=== PATIENT | female | born 1940 | race Caucasian/White ===

== ENCOUNTER 2025-05-07 15:13 | Inpatient (IN) | payer MEDICARE, OTHER ==
[~2025-05-07] VITALS: Ht 170.2 cm; Wt 67.2 kg
[2025-05-07 16:15] LABS: PLATELET COUNT (AUTO) 193 K/uL (150-450); RED BLOOD CELL COUNT(AUTO) 3.60 MIL/uL (4.0-5.2); RED CELL DISTRIBUTION WIDTH 21.8 % (11.5-15.0); WHITE BLOOD COUNT (AUTO) 8.6 K/uL (4.3-11.0)
[2025-05-07 16:22] LABS: CALCIUM, SERUM 8.0 mg/dL (8.5-10.1); CREATININE 0.3 mg/dL (0.6-1.3); SODIUM SERUM 133 mmol/L (136-145); UREA NITROGEN, BLOOD 15 mg/dL (7-18)
[2025-05-07] MEDS ORDERED: IOHEXOL-350 100 ML VIAL IV ONE ×2 (16:34→17:32)
[2025-05-07 16:35] LABS: ASPARTATE AMINOTRANSFERASE 22 U/L (15-37); NT-PRO BNP 240 pg/mL (0-125); TOTAL PROTEIN, SERUM 6.2 g/dL (6.4-8.2)
[2025-05-07 16:42] LABS: INR 0.99 (0.91-1.10)
[2025-05-07] MEDS ORDERED: DEXA4TAB68 PO (19:32)
[2025-05-07] MEDS ORDERED: FLEC50TA2 PO (19:32)
[2025-05-07] MEDS ORDERED: ESTR0.3T3 PO (19:32)
[2025-05-07] MEDS ORDERED: METH-647 PO (19:32)
[2025-05-07] MEDS ORDERED: GABA-536 PO (19:32)
[2025-05-07] MEDS ORDERED: HYDR-3972 PO (19:32)
[2025-05-07] MEDS ORDERED: ALPR0.5T8 PO (19:32)
[2025-05-07] MEDS ORDERED: METO25TA20 PO (19:32)
[2025-05-07] MEDS ORDERED: ESZO3TAB27 PO (19:32)
[2025-05-07] MEDS ORDERED: ATOR40TA PO (19:32)
[2025-05-07] MEDS ORDERED: TRAZ-182 PO (19:32)
[2025-05-07] MEDS ORDERED: MAGNESIUM HYDROXIDE 30 ML UDC PO PRN (21:00)
[2025-05-07] MEDS ORDERED: Z GUARD REMEDY 4 OZ OINT TP PRN (21:00)
[2025-05-07] MEDS ORDERED: HYDROCODONE/APAP 10/325MG TABLET PO PRN (21:00)
[2025-05-07] MEDS ORDERED: ONDANSETRON HCL/PF 4 MG/2 ML VIAL IVP PRN (21:00)
[2025-05-07] MEDS ORDERED: MAG HYDROX/AL HYDROX/SIMETH 30 ML UDC PO PRN (21:00)
[2025-05-07] MEDS: HEPARIN SODIUM, PORCINE 5000 UNITS/1 ML VIAL SQ SCH (21:34)
[2025-05-07 23:35] VITALS: BP 105/70; TEMP 97.8; O2SAT 92
[2025-05-08] MEDS ORDERED: METHOCARBAMOL (500MG) 500 MG TABLET PO PRN
[2025-05-08] MEDS: ACETAMINOPHEN 325 MG TABLET PO PRN (03:14)
[2025-05-08] MEDS: PANTOPRAZOLE 40 MG TABLET.DR PO SCH (06:43)
[2025-05-08 07:28] LABS: PLATELET COUNT (AUTO) 174 K/uL (150-450); RED BLOOD CELL COUNT(AUTO) 3.54 MIL/uL (4.0-5.2); RED CELL DISTRIBUTION WIDTH 22.1 % (11.5-15.0); WHITE BLOOD COUNT (AUTO) 8.2 K/uL (4.3-11.0)
[2025-05-08 07:30] VITALS: BP 122/81; TEMP 97.9; O2SAT 91
[2025-05-08 07:57] LABS: CALCIUM, SERUM 8.1 mg/dL (8.5-10.1); CREATININE 0.5 mg/dL (0.6-1.3); PHOSPHORUS 3.1 mg/dL (2.5-4.9); SODIUM SERUM 135.0 mmol/L (136-145); UREA NITROGEN, BLOOD 12.0 mg/dL (7-18)
[2025-05-08 08:04] LABS: LDL 87.0 mg/dL (0-99)
[2025-05-08] MEDS ORDERED: ZOLPIDEM TARTRATE 5 MG TABLET PO PRN (08:30)
[2025-05-08] MEDS: GABAPENTIN 400 MG CAPSULE PO SCH (08:52)
[2025-05-08] MEDS: FLECAINIDE ACETATE (100 MG) 100 MG TABLET PO SCH (08:52)
[2025-05-08] MEDS: ATORVASTATIN 40 MG TABLET PO SCH (08:53)
[2025-05-08] MEDS: METOPROLOL TARTRATE 25 MG TABLET PO SCH (08:53)
[2025-05-08] MEDS: POTASSIUM CHLORIDE 20 MEQ TAB.PRT.SR PO SCH (10:00)
[2025-05-08] MEDS: POTASSIUM CHLORIDE 20 MEQ POWDER PACKET PO SCH (11:13)
[2025-05-08 14:40] VITALS: BP 115/68
[2025-05-08] MEDS: HYDROCODONE/APAP 5/325MG TABLET PO PRN (14:41)
[2025-05-08 16:06] VITALS: BP 105/64; TEMP 98.8; O2SAT 93
[2025-05-08 19:50] LABS: INR 1.0 (0.91-1.10)
[2025-05-08 20:00] VITALS: BP 106/69; TEMP 98.6; O2SAT 93
[2025-05-08] MEDS ORDERED: HEPARIN SODIUM, PORCINE 5000 UNITS/1 ML VIAL IV ONE (21:00)
[2025-05-08] MEDS: HEPARIN INFUSION/D5W 500 ML IV PRN (21:42)
[2025-05-09] VITALS: BP 136/77; TEMP 98.6; O2SAT 100; O2SAT 93
[2025-05-09] MEDS: ALPRAZOLAM 0.25 MG TABLET PO SCH (00:34)
[2025-05-09 04:16] LABS: CALCIUM, SERUM 8.0 mg/dL (8.5-10.1); CREATININE 0.4 mg/dL (0.6-1.3); SODIUM SERUM 136 mmol/L (136-145); UREA NITROGEN, BLOOD 11 mg/dL (7-18)
[2025-05-09 04:17] LABS: PLATELET COUNT (AUTO) 177 K/uL (150-450); RED BLOOD CELL COUNT(AUTO) 3.46 MIL/uL (4.0-5.2); RED CELL DISTRIBUTION WIDTH 21.5 % (11.5-15.0); WHITE BLOOD COUNT (AUTO) 8.5 K/uL (4.3-11.0)
[2025-05-09 04:38] LABS: INR 1.05 (0.91-1.10)
[2025-05-09 05:53] LABS: INR 1.07 (0.91-1.10)
[2025-05-09 08:00] VITALS: BP 111/84; TEMP 97.9; O2SAT 92
[2025-05-09 13:08] LABS: INR 1.06 (0.91-1.10)
[2025-05-09 16:00] VITALS: BP 112/71; TEMP 98.1; O2SAT 93
[2025-05-09 19:46] LABS: INR 1.05 (0.91-1.10)
[2025-05-09 20:55] VITALS: BP 105/59; TEMP 98.1; O2SAT 92
[2025-05-10 02:29] LABS: INR 1.01 (0.91-1.10)
[2025-05-10 05:58] LABS: PLATELET COUNT (AUTO) 177 K/uL (150-450); RED BLOOD CELL COUNT(AUTO) 3.35 MIL/uL (4.0-5.2); RED CELL DISTRIBUTION WIDTH 21.7 % (11.5-15.0); WHITE BLOOD COUNT (AUTO) 8.9 K/uL (4.3-11.0)
[2025-05-10 06:02] LABS: CALCIUM, SERUM 7.9 mg/dL (8.5-10.1); CREATININE 0.4 mg/dL (0.6-1.3); SODIUM SERUM 135.0 mmol/L (136-145); UREA NITROGEN, BLOOD 12.0 mg/dL (7-18)
[2025-05-10 08:42] VITALS: BP 116/82; TEMP 97.3; O2SAT 96
[2025-05-10 08:48] VITALS: BP 116/82
[2025-05-10 11:49] LABS: LYMPHOCYTES % (MANUAL) 7 % (16-48); MONOCYTES % (MANUAL) 6 % (0-11.0); MYELOCYTES % 3 % (0-0); NEUTROPHILS % (MANUAL) 84 (42-76)
[2025-05-10 12:12] LABS: PLATELET ESTIMATE ADEQUATE
[2025-05-10] MEDS ORDERED: APIX2.5T PO (12:32)
[2025-05-10 16:13] LABS: INR 1.0 (0.91-1.10)
== END 2025-05-10 16:15 | disposition home health service (06) | DRG 299 ==
LOC: ER 15:15 → TELE 19:30 → MED 05-09 18:51
PROVIDERS: ADMIT Registered Nurse Psychiatric/Mental Health; ATTEND Nurse Practitioner Acute Care
DX: I87.1 Compression of vein (principal); I26.99 Other pulmonary embolism without acute cor pulmonale; E44.0 Moderate protein-calorie malnutrition; I82.210 Acute embolism and thrombosis of superior vena cava; C79.51 Secondary malignant neoplasm of bone; J84.10 Pulmonary fibrosis, unspecified; D32.9 Benign neoplasm of meninges, unspecified; E83.51 Hypocalcemia; E78.5 Hyperlipidemia, unspecified; E88.09 Other disorders of plasma-protein metabolism, not elsewhere classified; I10 Essential (primary) hypertension; Z95.0 Presence of cardiac pacemaker; Z74.01 Bed confinement status; F41.9 Anxiety disorder, unspecified; R73.9 Hyperglycemia, unspecified; C67.9 Malignant neoplasm of bladder, unspecified; Z66 Do not resuscitate; Z88.0 Allergy status to penicillin
CPT/HCPCS: 36415; 70496-TC; 70498-TC; 71045-TC; 80048-TC; 80061-TC; 80076-TC; 83735-TC; 83880; 84100-TC; 84484-TC; 85025-TC; 85027-TC; 85378-TC; 85610-TC; 85730-TC; 86850-TC; 87081-TC; 92526; 92611; A4223; G0378; J1644; J7050; J8540; Q9967